=== PATIENT | female | born 1990 | race Caucasian/White ===

== ENCOUNTER 2025-11-12 21:53 | Emergency (ER) | payer MEDICAID ==
[~2025-11-12] VITALS: Ht 165.1 cm; Wt 72.5 kg
[2025-11-12 21:57] VITALS: O2SAT 99
[2025-11-12 23:07] LABS: BASOPHILS % 0.2 % (0.0-2.0); EOSINOPHILS % 1.2 % (0.0-5.0); HEMATOCRIT. 38.8 % (36.0-48.0); HEMOGLOBIN. 12.5 g/dL (12.0-16.0); LYMPHOCYTES % 14.1 % (20.0-50.0); MEAN PLATELET VOLUME 8.5 fl (7.4-10.4); MONOCYTES % 4.8 % (2.0-8.0); NEUTROPHILS % 79.7 % (40.0-76.0); PLATELET 310 x1000/uL (130-400); RED BLOOD CELL COUNT 4.64 mill/uL (4.2-5.4); RED CELL DISTRIBUTION WIDTH 13.7 % (11.6-14.6)
[2025-11-12 23:19] LABS: CREATININE 0.7 mg/dL (0.6-1.0)
[2025-11-12 23:20] LABS: PROTEIN TOTAL 7.2 g/dL (6.0-8.3); UREA NITROGEN BLOOD 7 mg/dL (9-23)
[2025-11-12 23:21] LABS: ASPARTATE AMINOTRANSFERASE 12 IU/L (<34); BILIRUBIN DIRECT 0.2 mg/dL (<=3.0)
[2025-11-12 23:22] LABS: BILIRUBIN TOTAL 0.5 mg/dL (0.1-1.0)
[2025-11-12] MEDS: ACETAMINOPHEN 325MG TABLET PO ONE (23:28)
[2025-11-12] MEDS: ONDANSETRON 4MG ODT PO ONE (23:28)
[2025-11-13] MEDS: POTASSIUM CHLORIDE 20MEQ/PACKET PO ONE (01:17)
[2025-11-13] MEDS ORDERED: *PATIENT'S OWN MEDICATION STORAGE XX SCH (03:45)
[2025-11-13 05:46] LABS: HCG SCREEN NEGATIVE
[2025-11-13] MEDS: KETOROLAC 15MG/ML VIAL IM ONE (06:38)
[2025-11-13] MEDS: ALPRAZOLAM 0.25 MG TABLET PO ONE (06:38)
[2025-11-13 06:50] VITALS: BP 94/60; PULSE 65; RESP 18; TEMP 37.1; O2SAT 99
== END 2025-11-13 06:50 | disposition home or self-care (01) ==
LOC: ER 22:01
DX: T74.21XA Adult sexual abuse, confirmed, initial encounter (principal); F41.9 Anxiety disorder, unspecified; I10 Essential (primary) hypertension; Y04.0XXA Assault by unarmed brawl or fight, initial encounter
CPT/HCPCS: 99285; 80076; 80048; 81025; 84703; 83690; 85025; 36415; 74176; 96372; Q0162; J1885

== ENCOUNTER 2025-11-23 15:48 | Emergency (ER) | payer MEDICAID ==
[~2025-11-23] VITALS: Ht 170.2 cm; Wt 73.0 kg
[2025-11-23 15:53] VITALS: O2SAT 98
[2025-11-23] MEDS: HYDROXYZINE 25MG TABLET PO ONE (19:04)
[2025-11-23] MEDS: LIDOCAINE 5% PATCH TOP STA (19:04)
[2025-11-23] MEDS: ACETAMINOPHEN 325MG TABLET PO ONE (19:05)
[2025-11-23] MEDS: METHOCARBAMOL 750MG TABLET PO STA (19:06)
[2025-11-23] MEDS: IBUPROFEN 400MG TABLET PO ONE (19:06)
[2025-11-23 19:07] VITALS: BP 123/79; PULSE 89; RESP 16; TEMP 36.7; O2SAT 98
== END 2025-11-23 19:08 | disposition home or self-care (01) ==
LOC: ER 15:48
DX: F14.10 Cocaine abuse, uncomplicated (principal); F15.10 Other stimulant abuse, uncomplicated; F17.200 Nicotine dependence, unspecified, uncomplicated; I44.0 Atrioventricular block, first degree
CPT/HCPCS: 71045; 93005; 99284